=== PATIENT | male | born 2000 | race Caucasian/White ===

== ENCOUNTER 2021-02-13 09:07 | Emergency (ER) | payer OTHER ==
[2021-02-13 10:02] LABS: RAPID STREP SCREEN Negative (Negative)
--- NOTE | 2021-02-13 10:30 | ED Physician Documentation ---
PD HPI HEENT - Stated complaint Stated Complaint: SORE THROAT/MUSCLE PX - Chief complaint Chief Complaint: Heent - History obtained from History obtained from: Patient - History of Present Illness Timing - onset: Last night Timing - duration: Hours Timing - details: Abrupt onset, Still present Location: Throat Improves: Medication Worsens: Swalllowing Associated symptoms: Congestion, Swollen nodes. 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 He describes odynophagia he has had a little bit of fever last night he has not had a cough associated with this he has some muscle aches. Review of Systems Constitutional: reports: Fever, Chills, Myalgias Eyes: denies: Decreased vision Ears: denies: Ear pain Nose: reports: Congestion Throat: reports: Sore throat Cardiac: denies: Chest pain / pressure, Palpitations Respiratory: denies: Dyspnea, Cough GI: denies: Abdominal Pain, Nausea, Vomiting : denies: Dysuria PD PAST MEDICAL HISTORY - Past Medical History Past Medical History: No - Past Surgical History Past Surgical History: No - Present Medications Home Medications: Ambulatory Orders Medication Instructions Recorded Confirmed Amox/Clav 875/125 [Augmentin] 1 each PO Q12H #20 tablet 02/13/21 - Allergies Allergies/Adverse Reactions: Allergies Allergy/AdvReac Type Severity Reaction Status Date / Time No Known Drug Allergies Allergy Verified 02/13/21 09:15 - Social History Does the pt smoke?: No Smoking Status: Never smoker Does the pt drink ETOH?: Yes ETOH Use: Beer Does the pt have substance abuse?: No - Immunizations Immunizations are current?: Yes PD ED PE NORMAL - Vitals Vital signs reviewed: Yes (normal ) - General General: Alert and oriented X 3, No acute distress, Well developed/nourished - HEENT HEENT: Atraumatic, PERRL, EOMI, Other (The right TM is markedly erythematous with distortion of the landmarks the left is much less involve the pharynx is with 2+ tonsils minimal exudate generalized erythema slight swelling.) - Neck Neck: Supple, no meningeal sign, No bony TTP - Cardiac Cardiac: RRR, No murmur - Respiratory Respiratory: No respiratory distress, Clear bilaterally - Abdomen Abdomen: Soft, Non tender - Back Back: No CVA TTP, No spinal TTP - Derm Derm: Normal color, Warm and dry, No rash - Extremities Extremities: No deformity, No edema - Neuro Neuro: Alert and oriented X 3, space controller 2-12 intact, No motor deficit, No sensory deficit, Normal speech Eye Opening: Spontaneous Motor: Obeys Commands Verbal: Oriented GCS Score: 15 - Psych Psych: Normal mood, Normal affect Results - Vitals Vitals: Vital Signs - 24 hr 02/13/21 09:12 Temperature 36.6 C Heart Rate 65 Respiratory 16 Rate Blood Pressure 123/70 O2 Saturation 100 Oxygen O2 Source Room air - Labs Labs: Laboratory Tests 02/13/21 09:50 Group A Strep Rapid Negative PD MEDICAL DECISION MAKING - ED course Complexity details: reviewed results, re-evaluated patient, considered differential, d/w patient ED course: 20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 He has inflammation to the back of his throat his rapid strep is negative he does have inflammation to the right middle ear as well looks quite involved consistent with otitis media.He is administered dexamethasone we will place him on Augmentin. Departure - Departure Disposition: 01 Home, Self Care Clinical Impression: Otitis media Qualifiers: Otitis media type: suppurative Chronicity: acute Laterality: right Recurrence: non-recurrent Spontaneous tympanic membrane rupture: without spontaneous rupture Qualified Code(s): H66.001 - Acute suppurative otitis media without spontaneous rupture of ear drum, right ear Pharyngitis Qualifiers: Pharyngitis/tonsillitis etiology: unspecified etiology Qualified Code(s): J02.9 - Acute pharyngitis, unspecified Instructions: ED Otitis Media Acute Adult, ED Strep Pharyngitis Poss Follow-Up: [facility] [Provider Group] Prescriptions: Amox/Clav 875/125 [Augmentin] 1 each PO Q12H #20 tablet
[2021-02-13] MEDS ORDERED: CHERRY SYRUP 10 ML UDC PO ONE (10:33)
[2021-02-13] MEDS ORDERED: DEXAMETHASONE 10 MG/ML VIAL PO STA (10:33)
[2021-02-13 10:44] VITALS: BP 115/62
== END 2021-02-13 10:54 | disposition home or self-care (01) ==
LOC: ED 09:07
DX: H66.001 Acute suppurative otitis media without spontaneous rupture of ear drum, right ear (principal); J02.9 Acute pharyngitis, unspecified
CPT/HCPCS: 87070; 87430; 99283; 99284; A9270

== ENCOUNTER 2022-03-02 14:02 | Emergency (ER) | payer OTHER ==
[2022-03-02 14:19] VITALS: BP 132/64
[2022-03-02 14:37] LABS: RAPID STREP SCREEN Negative (Negative)
--- NOTE | 2022-03-02 15:45 | ED Physician Documentation ---
PD HPI HEENT - Stated complaint Stated Complaint: THROAT PX - Chief complaint Chief Complaint: Heent - History obtained from History obtained from: Patient - History of Present Illness Timing - onset: Yesterday Timing - duration: Days (2) Timing - details: Abrupt onset, Still present Location: Throat (sore throat with swollen and exudative tonsils.) Improves: No: Medication (some mild improvement with Ibuprofen earlier today.) Worsens: Swalllowing Associated symptoms: Fever, Swollen nodes. No: Congestion, Cough Similar symptoms before: Diagnosis (has had strep tonsillitis when younger. No recent URI symptoms otherwise.) Recently seen: Not recently seen Review of Systems Constitutional: reports: Fever, Chills Nose: denies: Rhinorrhea / runny nose, Congestion Throat: reports: Sore throat, Swollen tonsils Respiratory: denies: Cough GI: denies: Nausea, Vomiting, Diarrhea : denies: Dysuria, Discharge Skin: denies: Rash PD PAST MEDICAL HISTORY - Past Medical History Cardiovascular: None Respiratory: None Endocrine/Autoimmune: None - Past Surgical History Past Surgical History: No - Present Medications Home Medications: Ambulatory Orders Medication Instructions Recorded Confirmed Amox/Clav 875/125 [Augmentin] 1 each PO Q12H #20 tablet 02/13/21 Amoxicillin 500 mg PO TID #21 cap 03/02/22 Ibuprofen [Motrin] 600 mg PO TID PRN #20 tab 03/02/22 - Allergies Allergies/Adverse Reactions: Allergies Allergy/AdvReac Type Severity Reaction Status Date / Time No Known Drug Allergies Allergy Verified 02/13/21 09:15 - Social History Does the pt smoke?: No Smoking Status: Never smoker Does the pt drink ETOH?: Yes Does the pt have substance abuse?: No - Immunizations Immunizations are current?: Yes PD ED PE NORMAL - Vitals Vital signs reviewed: Yes - General General: Alert and oriented X 3, No acute distress, Well developed/nourished - HEENT HEENT: Ears normal, Moist mucous membranes, Dentition benign. No: Pharynx benign (bilateral tonsils enlarged and red with moderate exudative discharge both sides. Minimal peritonsillar edema on right. ) - Neck Neck: Supple, no meningeal sign, Other (anterior adenopathy noted bilaterally that is tender. ) - Cardiac Cardiac: RRR, No murmur - Respiratory Respiratory: Clear bilaterally - Derm Derm: Normal color, Warm and dry, No rash - Neuro Neuro: Alert and oriented X 3, Normal speech Results - Vitals Vitals: Vital Signs - 24 hr 03/02/22 14:18 Temperature 37.5 C Heart Rate 78 Respiratory 19 Rate Blood Pressure 132/64 H O2 Saturation 100 Oxygen O2 Source Room air - Labs Labs: Laboratory Tests 03/02/22 14:17 Group A Strep Rapid Negative PD MEDICAL DECISION MAKING - ED course Complexity details: reviewed results (rapid strep negative but patient with 4/4 Cent[facility] and shared decision is to start abx pending culture. ), considered differential, d/w patient Departure - Departure Disposition: Home, Self Care Clinical Impression: Exudative tonsillitis Condition: Stable Record reviewed to determine appropriate education?: Yes Instructions: ED Strep Pharyngitis Poss Follow-Up: [facility] [Provider Group] Prescriptions: Amoxicillin 500 mg PO TID #21 cap Ibuprofen [Motrin] 600 mg PO TID PRN #20 tab PRN Reason: Pain Comments: Stay well-hydrated. Tylenol or ibuprofen if needed for pains. Honey/tea, cool water, Benadryl liquid can all be useful to help with the throat as well. Your rapid strep test is negative but this looks clinically highly suggestive of a bacterial infection. The throat culture will result in a couple of days but in the interim we can treat it with amoxicillin antibiotic 3 times daily for a week. You can look up your culture results through the patient portal in a couple of days. Alternatively try to call folk with positive cultures. Recheck if not improving well over the next 2 to 3 days and return if worsening. I transmitted your prescriptions to [facility] pharmacy in [place]. Discharge Date/Time: 03/02/22 16:58
[2022-03-02] MEDS ORDERED: DEXAMETHASONE 10 MG/ML VIAL PO STA (16:21)
[2022-03-02] MEDS ORDERED: AMOXICILLIN 250 MG CAPSULE PO STA (16:21)
[2022-03-02] MEDS ORDERED: CHERRY SYRUP 10 ML UDC PO ONE (16:21)
[2022-03-02] MEDS ORDERED: ACETAMINOPHEN 325 MG TABLET PO STA (16:21)
== END 2022-03-02 16:58 | disposition home or self-care (01) ==
LOC: ED 14:02
DX: J03.90 Acute tonsillitis, unspecified (principal)
CPT/HCPCS: 87070; 87077; 87430; 99282; 99283; A9270